=== PATIENT | female | born 1960 | race Caucasian/White ===

== ENCOUNTER 2020-01-15 09:17 | Emergency (ER) | payer OTHER, SELFPAY ==
[2020-01-15 09:18] VITALS: BP 144/88; PULSE 93; RESP 18; TEMP 36.9; O2SAT 98; BMI 43.0
--- NOTE | 2020-01-15 09:34 | ED.VIS.GEN ---
History of Present Illness Chief Complaint: Lower Extremity Injury Informant: Patient Onset: Today Current Severity: Mild Maximum Severity: Moderate Narrative: Patient presents with right lower extremity injury after a fall. She was pushing a been down a carpeted hallway. She states she pushed it across a tile entryway where it started to move faster. She then tried to go to the carpeted area on the far side of the entryway and the been got caught and stopped. Patient fell forward landing on her right side. She is complaining of pain to the right hip, right thigh, right knee. She denies striking her head or loss of consciousness. She did not try to get up and ambulate. She has not yet taken anything for pain. - Past Medical History (1) Diabetes Status: Chronic (2) Anxiety Status: Chronic (3) Asthma Status: Chronic (4) S/P appendectomy Status: Chronic Past Medical History - Allergies and Home Meds Allergies/Adverse Reactions: Allergies Penicillins Allergy (Verified 01/15/20 09:22) Rash Sulfa (Sulfonamide Antibiotics) Allergy (Verified 01/15/20 09:22) Rash Primary Care Physician: Blair Avery DO [Primary Care Provider] - Prior records reviewed: Yes Smoking Status: Never smoker Review of Systems General: Denies: Chills, Fever Eyes: Denies: Visual changes - bilaterally ENT: Denies: Bilateral ear pain Cardiovascular: Denies: Chest pain Respiratory: Denies: Dyspnea, Cough Gastrointestinal: Denies: Abdominal pain, Nausea, Vomiting, Diarrhea Genitourinary: Denies: Dysuria Musculoskeletal: Reports: Extremity Pain Skin: Reports: Abrasions Neurological: Denies: Headache, Parasthesia Endocrine: Denies: Polyuria, Polydipsia Hematologic: Denies: Easy bruising, Easy bleeding Allergy: Denies: Uticaria Physical Exam Vital Signs/Narrative: Vital Signs Temp Pulse Resp BP Pulse Ox 01/15/20 09:18 98.5 F 93 18 144/88 H 98 Inital Vital Signs reviewed: Yes General: Well nourished, Well developed Head: Normocephalic ENT: Moist mucous membranes Neck: Supple Cardiovascular: Regular rate, Regular rhythm Respiratory: No distress, CTA bilaterally Abdomen: Soft, Nontender Extremities: - - Tenderness of the right knee and lateral right hip. She has some abrasions over the anterior right knee. No obvious deformity noted. She is able to logroll with minimal discomfort. Strong distal pulses are noted. She is able to straight leg raise her foot off the bed. Skin: - - Abrasions anterior right knee has noted Neurological: Alert, Oriented x3 Psychological: Normal affect Diagnostic/Tx/Re-eval Impressions Femur X-Ray 01/15/20 09:38 IMPRESSION: Normal x-ray examination of the femur. Electronically Signed: Volodymyr Cruz, at 10:08 EDT Tel , Service support , Pelvis X-Ray 01/15/20 09:38 IMPRESSION: Degenerative arthrosis of the pelvis. Electronically Signed: Volodymyr Zamarripaan, at 10:08 EDT Tel , Service support , 01/15/20 09:38 Femur Min 2 Views [RAD] Stat Pelvis 1 or 2 Views [RAD] Stat - Medical Decision Making Patient was given Oral for pain. Patient was able to get up and ambulate but does feel like her right leg is giving out on her when she walks. She is able to ambulate with a walker. She will be discharged with this and will follow-up with [facility]. ED Disposition - Plan for ED Patient: Disposition: Home or Assisted Living Diagnosis: Sprain of right hip, Contusion of right leg Instructions: ED Sprain Hip, ED Strain Muscle Ext Prescriptions: Hydrocodone Bitart/Apap 5-325 [Oral 5MG-325MG] 1 tablet PO Q6H PRN PRN 3 Days #10 tablet PRN Reason: Pain Transmission Status: Received by [facility]/pharmacy #[id number] Referrals: Blair Avery DO [Primary Care Provider] - [facility]] - 3-5 Days
--- NOTE | 2020-01-15 09:38 | RAD_ITS ---
STUDY: X-RAY - RIGHT FEMUR REASON FOR STUDY: Female, 59 years old. FALL ONTO KNEE, PAIN TO KNEE AND RADIATING INTO LATERAL HIP TECHNIQUE: 2 view(s) of the femur. COMPARISON: None. FINDINGS: Normal visualized femur. Normal visualized soft tissue structure. RAD/Femur Min 2 Views IMPRESSION: Normal x-ray examination of the femur. Electronically Signed: Volodymyr Cruz, at 10:08 EDT Tel , Service support ,
--- NOTE | 2020-01-15 09:38 | RAD_ITS ---
STUDY: X-RAY - PELVIS REASON FOR EXAM: Female, 59 years old. FALL ONTO KNEE, PAIN TO KNEE AND RADIATING INTO LATERAL HIP TECHNIQUE: One view of the pelvis was obtained. COMPARISON: None. FINDINGS: There is a non-specific bowel gas pattern. There are multiple calcified phleboliths. There is narrowing with cortical sclerosis and osteophyte formation of the sacroiliac joint consistent with degenerative osteoarthritic changes. Normal visualized bilateral superior and inferior pubic rami. Normal pubic symphysis. Normal ischial tuberosities. There are osteoarthritic changes of the right femoral head with marginal osteophyte formation. Normal right acetabulum. Normal right hip joint. There are osteoarthritic changes of the left femoral head with marginal osteophyte formation. Normal left acetabulum. Normal left hip joint. RAD/Pelvis 1 or 2 Views IMPRESSION: Degenerative arthrosis of the pelvis. Electronically Signed: Volodymyr Cruz, at 10:08 EDT Tel , Service support ,
[2020-01-15] MEDS: HYDROcodone Bitartrate/Apap 5/325 Tablet PO (09:55)
--- NOTE | 2020-01-15 10:36 | ED.RN ---
CHARITY FROM [facility] CALLED FOR DRUG SCREEN. CHARITY STATES SHE WILL BE IN SOON POSSIBLE. PT MADE AWARE.
== END 2020-01-15 13:24 | disposition home or self-care (01) ==
PROVIDERS: Emergency Provider Emergency Medicine; PCP Preventive Medicine Occupational Medicine
DX: S73.101A Unspecified sprain of right hip, initial encounter (principal); S80.11XA Contusion of right lower leg, initial encounter; S80.211A Abrasion, right knee, initial encounter; W19.XXXA Unspecified fall, initial encounter; Y93.9 Activity, unspecified; Y92.9 Unspecified place or not applicable; E11.9 Type 2 diabetes mellitus without complications; F41.9 Anxiety disorder, unspecified; J45.909 Unspecified asthma, uncomplicated; Z79.84 Long term (current) use of oral hypoglycemic drugs; Z79.899 Other long term (current) drug therapy
CPT/HCPCS: 72170; 73552; 99284